=== PATIENT | female | born 1945 | race Caucasian/White ===

== ENCOUNTER 2024-06-05 15:16 | Inpatient (IN) | payer MEDICARE, BC ==
[~2024-06-05] VITALS: Ht 170.2 cm; Wt 58.1 kg
[2024-06-05] MEDS ORDERED: ACET-3117 PO (16:11)
[2024-06-05] MEDS ORDERED: HYDR-3980 PO (16:11)
[2024-06-05] MEDS ORDERED: PETR113P TP (16:11)
[2024-06-05] MEDS ORDERED: LISI20TA30 PO (16:11)
[2024-06-05] MEDS ORDERED: PANT40TA2 PO (16:11)
[2024-06-05] MEDS ORDERED: DONE5TAB7 PO (16:11)
[2024-06-05] MEDS ORDERED: ENOX40DI SQ (16:11)
[2024-06-05] MEDS ORDERED: SERT50TA PO (16:11)
[2024-06-05] MEDS ORDERED: MAG-55 PO (16:11)
[2024-06-05] MEDS ORDERED: MAGN400O6 PO (16:11)
[2024-06-05] MEDS ORDERED: MULT-1119 PO (16:11)
[2024-06-05] MEDS ORDERED: ONDA4TAB5 PO (16:11)
[2024-06-05] MEDS ORDERED: REMEDY ESSENTIAL ZINC PASTE 113 GM TOP PRN (16:15)
[2024-06-05] MEDS ORDERED: ZOLP5TAB8 PO (16:16)
[2024-06-05 17:10] VITALS: BP 104/65; TEMP 97.7; O2SAT 98
[2024-06-05 20:00] VITALS: BP 129/52; TEMP 98.1; O2SAT 94
[2024-06-05] MEDS: HYDROCODONE/APAP 10-325 MG TABLET PO PRN (20:31)
[2024-06-05] MEDS: DONEPEZIL 5 MG TABLET PO SCH (20:32)
[2024-06-05] MEDS ORDERED: MAG HYDROX/AL HYDROX/SIMETH 30 ML LIQUID UDC PO PRN (22:15)
[2024-06-06] MEDS: LORAZEPAM 0.5 MG TABLET PO ONE (01:00)
[2024-06-06] MEDS: ZOLPIDEM 5 MG TABLET PO PRN (01:07)
[2024-06-06 06:00] VITALS: BP 122/65; TEMP 98.1; O2SAT 98
[2024-06-06] MEDS: MULTIVITAMINS,THERAPEUTIC TABLET PO SCH (09:34)
[2024-06-06] MEDS: LISINOPRIL 20 MG TABLET PO SCH (09:35)
[2024-06-06] MEDS: PANTOPRAZOLE SODIUM 40 MG TABLET.DR PO SCH (09:36)
[2024-06-06] MEDS: SERTRALINE HCL 50 MG TABLET PO SCH (09:36)
[2024-06-06] MEDS: ENOXAPARIN SODIUM 40 MG/0.4 ML DISP.SYRIN SQ SCH (09:46)
[2024-06-06 16:05] VITALS: BP 100/52; TEMP 98.5; O2SAT 97
[2024-06-06 20:00] VITALS: BP 124/51; TEMP 99.1; O2SAT 95
[2024-06-07 06:00] VITALS: BP 118/53; TEMP 98.3; O2SAT 97
[2024-06-07] MEDS: ACETAMINOPHEN 325 MG TABLET PO PRN (09:05)
[2024-06-07 16:09] VITALS: BP 108/48; TEMP 98.8; O2SAT 96
[2024-06-07] MEDS: ALPRAZOLAM 0.5 MG TABLET PO PRN (20:48)
[2024-06-07 21:10] VITALS: BP 140/58; TEMP 99.3; O2SAT 95
[2024-06-08 05:48] VITALS: BP 123/63; TEMP 99.2; O2SAT 96
[2024-06-08 16:04] VITALS: BP 129/55; TEMP 98.6; O2SAT 96
[2024-06-08 20:00] VITALS: BP 120/56; TEMP 98.4; O2SAT 95
[2024-06-09 06:10] VITALS: BP 122/56; TEMP 98.4; O2SAT 98
[2024-06-09 16:00] VITALS: BP 109/56; TEMP 99.5; O2SAT 96
[2024-06-09 20:57] VITALS: BP 117/63; TEMP 99; O2SAT 97
[2024-06-10 07:17] VITALS: BP 126/65; TEMP 99.2; O2SAT 97
[2024-06-10 16:03] VITALS: BP 103/46; TEMP 98.3; O2SAT 98
[2024-06-10 17:11] LABS: *BLOOD, URINE NEGATIVE (NEGATIVE); *CLARITY,URINE CLEAR (CLEAR); *COLOR,URINE YELLOW (YELLOW); *KETONES,URINE 2+ (NEGATIVE); *PROTEIN,URINE 1+ (NEGATIVE); LEUKOCYTE ESTERASE ,URINE 1+ (NEGATIVE); NITRITE, URINE NEGATIVE (NEGATIVE); UGLUCOSE NEGATIVE (NEGATIVE)
[2024-06-10 17:22] LABS: *BILIRUBIN,URIN 1+ (NEGATIVE); RBC,URINE 0-3 /HPF (0-3)
[2024-06-10 20:00] VITALS: BP 106/67; TEMP 98.2; O2SAT 98
[2024-06-11 05:00] VITALS: BP 101/59; TEMP 98.1; O2SAT 98
[2024-06-11 07:30] LABS: BASOPHILS % (AUTO) 0.6 % (0.0-2.0); EOSINOPHILS # (AUTO) 0.2 K/uL (0.0-0.7); HEMATOCRIT 27.7 % (31.2-41.9); HEMOGLOBIN 9.8 g/dL (10.9-14.3); LYMPHOCYTES % (AUTO) 16.6 % (20.5-51.5); MEAN CORPUSCULAR HEMOGLOBIN 34.7 uug (24.7-32.8); MEAN CORPUSCULAR HGB CONC 35 g/dL (32.3-35.6); MEAN CORPUSCULAR VOLUME 98.6 fL (75.5-95.3); MONOCYTES % (AUTO) 16.1 % (0.0-11.0); NEUTROPHILS # (AUTO) 3.8 K/uL (1.8-8.9); NEUTROPHILS % (AUTO) 63.7 % (38.5-71.5); PLATELET COUNT (AUTO) 507 K/uL (179-408); RED BLOOD CELL COUNT(AUTO) 2.81 MIL/uL (3.63-4.92); RED CELL DISTRIBUTION WIDTH 13.2 % (12.3-17.7)
[2024-06-11 07:37] LABS: CALCIUM 8.7 mg/dL (8.5-10.1); CARBON DIOXIDE 28 mmol/L (21-32); CHLORIDE 106 mmol/L (98-107); CREATININE 0.6 mg/dL (0.6-1.3); GLUCOSE 92 mg/dL (74-106); POTASSIUM 4.5 mmol/L (3.5-5.1); SODIUM SERUM 143 mmol/L (136-145); UREA NITROGEN, BLOOD 9 mg/dL (7-18)
[2024-06-11 07:50] LABS: DIFFERENTIAL COMMENT 1
[2024-06-11 08:00] VITALS: BP 114/46; O2SAT 97
[2024-06-11 12:48] LABS: NEUTROPHILS % (MANUAL) 0 % (42-75)
[2024-06-11 16:00] VITALS: BP 102/43; TEMP 98.6; O2SAT 95
[2024-06-11 21:14] VITALS: BP_SYST 105; BP_SYST 95; BP_DIAS 39; BP_DIAS 47; TEMP 98.7; O2SAT 92
[2024-06-12 06:40] VITALS: BP 101/52; TEMP 98.1; O2SAT 96
[2024-06-12 19:58] VITALS: BP 98/43; TEMP 97.9; O2SAT 98
[2024-06-13 06:18] VITALS: BP 109/45; TEMP 97.8; O2SAT 97
[2024-06-13 11:00] VITALS: BP 114/51
[2024-06-13 15:34] VITALS: BP 105/47; TEMP 98.2; O2SAT 98
[2024-06-13] MEDS: MAGNESIUM HYDROXIDE 30 ML LIQUID UDC PO PRN (20:39)
[2024-06-14 00:15] VITALS: BP 103/51; TEMP 98.1; O2SAT 95
[2024-06-14 06:39] VITALS: BP 120/57; TEMP 98.2; O2SAT 95
[2024-06-14 07:51] VITALS: BP 139/63; TEMP 97.8; O2SAT 98
[2024-06-14 15:21] VITALS: BP 96/52; TEMP 97.4; O2SAT 96
[2024-06-14 20:00] VITALS: BP 118/48; TEMP 98.1; O2SAT 96
[2024-06-15 06:00] VITALS: BP 100/49; TEMP 98.3; O2SAT 95
[2024-06-15 07:51] VITALS: BP 104/49; TEMP 98; O2SAT 98
[2024-06-15 15:23] VITALS: BP 107/53; TEMP 98.6; O2SAT 99
[2024-06-15 20:12] VITALS: BP 116/55; TEMP 98; O2SAT 96
[2024-06-16 06:00] VITALS: BP 127/57; TEMP 98.1; O2SAT 99
[2024-06-16 08:00] VITALS: BP 110/45; TEMP 98.2; O2SAT 96
[2024-06-16 15:48] VITALS: BP 96/47; TEMP 98.1; O2SAT 96
[2024-06-16 19:25] VITALS: BP 96/48; TEMP 98.2; O2SAT 96
[2024-06-17 06:30] VITALS: BP 127/51; TEMP 98.2; O2SAT 96
[2024-06-17 08:00] VITALS: BP 127/49; TEMP 98; O2SAT 100
[2024-06-17] MEDS: KETOROLAC TROMETHAMINE 15 MG INJ IM ONE (10:32)
[2024-06-17 16:00] VITALS: BP 103/46; TEMP 98.4; O2SAT 98
[2024-06-17] MEDS: CIPROFLOXACIN HCL 250 MG TABLET PO SCH (20:38)
[2024-06-17 20:49] VITALS: BP 114/45; TEMP 98.2; O2SAT 97
[2024-06-18 06:24] VITALS: BP 111/58; TEMP 98.2; O2SAT 94
[2024-06-18 09:05] VITALS: BP 109/58; TEMP 98.6; O2SAT 98
[2024-06-18 15:11] VITALS: BP 92/50; TEMP 98.2; O2SAT 98
[2024-06-18 20:00] VITALS: BP 117/61; TEMP 98.4; O2SAT 98
[2024-06-19 06:00] VITALS: BP 118/62; TEMP 98; O2SAT 98
[2024-06-19 07:51] VITALS: BP 106/65; TEMP 98.2; O2SAT 98
[2024-06-19 09:00] VITALS: BP 106/65
== END 2024-06-19 14:53 | disposition home health service (06) | DRG 560 ==
PROVIDERS: ADMIT Physical Medicine & Rehabilitation Pain Medicine; ATTEND Physical Medicine & Rehabilitation Pain Medicine
DX: Z47.1 Aftercare following joint replacement surgery (principal); N39.0 Urinary tract infection, site not specified; I10 Essential (primary) hypertension; F03.90 Unspecified dementia, unspecified severity, without behavioral disturbance, psychotic disturbance, mood disturbance, and anxiety; Z96.642 Presence of left artificial hip joint; Z91.81 History of falling; B96.20 Unspecified Escherichia coli [E. coli] as the cause of diseases classified elsewhere; R26.89 Other abnormalities of gait and mobility; R53.1 Weakness; J98.4 Other disorders of lung; D64.9 Anemia, unspecified; D75.839 Thrombocytosis, unspecified; K21.9 Gastro-esophageal reflux disease without esophagitis; M19.90 Unspecified osteoarthritis, unspecified site
CPT/HCPCS: 36415; 70030-TC; 73502; 85025; 97535-GO-CO; J1650; J1885

== ENCOUNTER 2024-06-17 10:21 | Emergency (ER) | payer MEDICARE, BC ==
[~2024-06-17] VITALS: Ht 167.6 cm; Wt 72.6 kg
[~2024-06-17 10:21] MED LIST: ACET-3117 PO; DONE5TAB7 PO; ENOX40DI SQ; HYDR-3980 PO; LISI20TA30 PO; MAG-55 PO; MAGN400O6 PO; MULT-1119 PO; ONDA4TAB5 PO; PANT40TA2 PO; PETR113P TP; SERT50TA PO; ZOLP5TAB8 PO
[2024-06-17] MEDS ORDERED: ETOMIDATE 20 MG/10 ML VIAL ONE (11:05)
[2024-06-17] MEDS: ETOMIDATE 20 MG/10 ML VIAL IV ONE (11:07)
[2024-06-17 12:20] VITALS: BP 104/55; O2SAT 100
== END 2024-06-17 12:20 | disposition admitted as inpatient to this hospital (09) ==
LOC: ER 10:21
DX: T84.021A Dislocation of internal left hip prosthesis, initial encounter (principal); F03.911 Unspecified dementia, unspecified severity, with agitation; I10 Essential (primary) hypertension; Z79.899 Other long term (current) drug therapy; Y79.2 Prosthetic and other implants, materials and accessory orthopedic devices associated with adverse incidents
CPT/HCPCS: 99285; 27265; 73502; 99152; J3490; A4606; A4663; G0500